=== PATIENT | male | born 1990 | race Caucasian/White ===

== ENCOUNTER 2025-03-06 06:58 | Day surgery (SDC) | payer OTHER ==
[2025-03-03 16:37] VITALS: BMI 25.0
[2025-03-06] MEDS ORDERED: LIDOCAINE HCL 1%, 10 MG/ML (20ML VIAL) ONE (07:47)
[2025-03-06] MEDS ORDERED: BUPIVACAINE HCL/PF 0.25% (2.5MG/ML) 10 ML VIAL ONE (07:47)
[2025-03-06] MEDS ORDERED: BUPIVACAINE HCL/PF 0.5% (5MG/ML) 10 ML VIAL ONE (07:47)
[2025-03-06] MEDS ORDERED: PROPOFOL 20 ML ONE ×2 (07:49→07:50)
[2025-03-06] MEDS ORDERED: DEXAMETHASONE SOD PHOSPHATE 4 MG/1 ML VIAL ONE (07:49)
[2025-03-06] MEDS ORDERED: ONDANSETRON 4 MG/2 ML VIAL ONE (07:49)
[2025-03-06] MEDS ORDERED: ceFAZolin SODIUM 1 GM VIAL ONE (07:49)
[2025-03-06] MEDS ORDERED: LIDOCAINE HCL 2% 100 MG/5 ML DISP.SYRIN ONE (07:49)
[2025-03-06] MEDS ORDERED: MIDAZOLAM HCL 2 MG/2 ML SINGLE DOSE VIAL ONE (07:50)
[2025-03-06] MEDS: ceFAZolin SODIUM 1 GM VIAL IVPB ONE (08:29)
[2025-03-06] MEDS ORDERED: DEXTROSE 5%-0.45% SALINE 1,000 ML IV SCH (08:30)
[2025-03-06] MEDS: LIDOCAINE HCL 1%, 10 MG/ML (20ML VIAL) INF ONE ×2 (08:37)
[2025-03-06] MEDS ORDERED: PROMETHAZINE HCL 25 MG/1 ML VIAL IVPB PRN (09:13)
[2025-03-06] MEDS ORDERED: ONDANSETRON 4 MG/2 ML VIAL IVPUSH PRN (09:13)
[2025-03-06] MEDS ORDERED: LACTATED RINGERS SOLUTION 1,000 ML IV SCH (09:15)
[2025-03-06] MEDS ORDERED: ACETAMINOPHEN INJECTION 100 ML ONE (09:26)
[2025-03-06] MEDS: ACETAMINOPHEN 1000 MG/100 ML BAG IVPB ONE (09:28)
[2025-03-06] MEDS ORDERED: KETOROLAC TROMETHAMINE 15 MG/ML VIAL IVPUSH ONE (10:31)
[2025-03-06 11:38] VITALS: TEMP 97.2
[2025-03-06 12:14] VITALS: BP 122/68; PULSE 58; RESP 18
== END 2025-03-06 12:55 | disposition home or self-care (01) ==
LOC: JASU-SURG 06:58
PROVIDERS: ATTEND Urology
PROC: 0VTTXZZ Resection of Prepuce, External Approach (ICD-10-PCS; principal; 2025-03-06 08:00)
DX: N48.1 Balanitis (principal); N47.1 Phimosis
CPT/HCPCS: 88304-TC; 94760